=== PATIENT | female | born 1960 | race Caucasian/White ===

== ENCOUNTER 2019-01-13 05:36 | Emergency (ER) | payer SELFPAY ==
[~2019-01-13] VITALS: Ht 152.4 cm; Wt 72.6 kg
--- NOTE | 2019-01-13 05:36 | NUR ---
PT BIBA. TAKEN TO BED 4
[2019-01-13 05:40] VITALS: BP 164/63
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
[2019-01-13] MEDS ORDERED: IBUPROFEN 600 MG TAB PO ONE (07:30)
--- NOTE | 2019-01-13 07:36 | NUR ---
CALLED PHARMACY FOR MOTRIN 600 MG
--- NOTE | 2019-01-13 07:39 | NUR ---
CALLED [facility] FOR MOTRIN 600 MG TABLET
--- NOTE | 2019-01-13 07:44 | NUR ---
PT BEING TAKEN TO RAD
[2019-01-13] MEDS ORDERED: IBUPROFEN 600 MG TAB ONE (07:54)
--- NOTE | 2019-01-13 08:23 | NUR ---
PT RETURNED FROM XRAY
[2019-01-13 09:34] VITALS: BP 132/54
--- NOTE | 2019-01-13 09:34 | NUR ---
DR GOMES AT BEDSIDE
--- NOTE | 2019-01-13 09:37 | NUR ---
Patient discharged with v/s stable BY DR GOMES. Written and verbal after care instructions given and explained. Patient alert, oriented and verbalized understanding of instructions. Ambulatory with steady gait. All questions addressed prior to discharge. ID band removed. Patient advised to follow up with PMD. Rx of NAPROSYN given. Patient educated on indication of medication including possible reaction and side effects. Opportunity to ask questions provided and answered.
== END 2019-01-13 09:37 | disposition home or self-care (01) ==
LOC: MED 05:36
DX: S13.9XXA Sprain of joints and ligaments of unspecified parts of neck, initial encounter (principal); S33.5XXA Sprain of ligaments of lumbar spine, initial encounter; S83.91XA Sprain of unspecified site of right knee, initial encounter; I10 Essential (primary) hypertension; E11.9 Type 2 diabetes mellitus without complications; V49.59XA Passenger injured in collision with other motor vehicles in traffic accident, initial encounter; Y93.89 Activity, other specified; Y92.89 Other specified places as the place of occurrence of the external cause; Y99.8 Other external cause status
CPT/HCPCS: 72040; 72100; 73562; 99283